=== PATIENT | female | born 1990 | race African-American/Black ===

== ENCOUNTER 2017-11-03 13:47 | Inpatient (IN) | payer BC ==
[2017-11-03 15:14] VITALS: BMI 27.8
--- NOTE | 2017-11-03 16:37 | HP ---
COWS - Scale Resting Pulse: 0= [place] 80 or Below Sweatin= No chills or Flushing Restless Observation: 1= Difficult to Sit Still Pupil Size: 1= Pupils >than Normal Bone or Joint Aches: 2= Severe Diffuse Aches Runny Nose/ Eye Tearin= None GI Upset > 30mins: 3= Vomiting/Diarrhea Tremor Observation: 2= Slight Tremor Visible Yawning Observation: 2= >3x During Session Anxiety or Irritability: 2=Irritable/Anxious Goose Flesh Skin: 3=Piloerection COWS Score: 16 Admission ROS S - HPI Chief Complaint: withdrawal symptoms Allergies/Adverse Reactions: Allergies Allergy/AdvReac Type Severity Reaction Status Date / Time ibuprofen [From Motrin] AdvReac Hives Verified 11/03/17 17:10 History of Present Illness: 27 yo female opiate dependence since 2011, with no history of prior treatment. Exam Limitations: No Limitations - Ebola screening Have you traveled outside of the country in the last 21 days: No (N) Have you had contact with anyone from an Ebola affected area: No Have you been sick,other than usual withdrawal symptoms: No Do you have a fever: No - Review of Systems Constitutional: Chills, Loss of Appetite, Unintentional Wgt. Loss EENT: reports: Other (intermittent tooth ache x 1 week, reports no link to dental care) Respiratory: reports: No Symptoms reported Cardiac: reports: No Symptoms Reported GI: reports: Diarrhea, Nausea, Poor Appetite, Abdominal cramping : reports: No Symptoms Reported Musculoskeletal: reports: Joint Stiffness (b/l knees & hands, and lower back) Integumentary: reports: Change in Hair/Nails (hair loss), Sweating Neuro: reports: Headache, Numbness, Tingling (hands) Endocrine: reports: Intolerance to Cold, Change in Weight Hematology: reports: Anemia Psychiatric: reports: Orientated x3, Depressed Patient History - Patient Medical History Hx Anemia: Yes Hx Asthma: Yes (no treatment ) Hx Chronic Obstructive Pulmonary Disease (COPD): No Hx Cancer: No Hx Cardiac Disorders: No Hx Congestive Heart Failure: No Hx Hypertension: No Hx Hypercholesterolemia: No Hx Pacemaker: No HX Cerebrovascular Accident: No Hx Seizures: No Hx Diabetes: No Hx Gastrointestinal Disorders: No Hx Liver Disease: No Hx Genitourinary Disorders: No Hx Sexually Transmitted Disorders: No Hx Renal Disease (ESRD): No Hx Thyroid Disease: No Hx Human Immunodeficiency Virus (HIV): No Hx Hepatitis C: No Hx Depression: Yes Hx Suicide Attempt: Yes (Tried to overdose 7 months ago.) Hx Bipolar Disorder: No Hx Schizophrenia: No - Patient Surgical History Past Surgical History: Yes Hx Neurologic Surgery: No Hx Cataract Extraction: No Hx Cardiac Surgery: No Hx Lung Surgery: No Hx Breast Surgery: No Hx Breast Biopsy: No Hx Abdominal Surgery: Yes (Gastric bypass in 2012) Hx Appendectomy: No Hx Cholecystectomy: No Hx Genitourinary Surgery: No Hx Section: No Hx Orthopedic Surgery: No Hx Hysterectomy: No - PPD History Previous Implant?: Yes Documented Results: Positive w/o proof Implanted On Prior [facility] Admission?: No - Reproductive History Patient is a Female of Child Bearing Age (11 -55 yrs old): Yes Last Menstrual Period: 01/07/17 (IUD) Patient : No - Smoking Cessation Smoking history: Current every day smoker Have you smoked in the past 12 months: Yes Aproximately how many cigarettes per day: 20 Hx Chewing Tobacco Use: No Initiated information on smoking cessation: Yes 'Breaking Loose' booklet given: 11/03/17 - Substance & Tx. History Hx Alcohol Use: No Hx Substance Use: Yes Substance Use Type: Opiates Hx Substance Use Treatment: No - Substances Abused percocet Route: Oral Frequency: Daily Amount used: 12-15 (5-10mg pills) Age of first use: 20 Date of Last Use: 11/02/17 Family Disease History - Family Disease History Family Disease History: Heart Disease: Mother (HTN ), Other: Brother (alieve and well ), Sister (alieve and well ) Admission Physical Exam S - Vital Signs Vital Signs: Vital Signs - 24 hr 11/03/17 15:10 Temperature 97.7 F Pulse Rate 62 Respiratory 20 Rate Blood Pressure 136/80 - Physical General Appearance: Yes: No Apparent Distress, Appropriately Dressed HEENTM: Yes: Hearing grossly Normal, Normal ENT Inspection, Normocephalic, Normal Voice, LYNSEY, Pharynx Normal Respiratory: Yes: Chest Non-Tender, Lungs Clear, Normal Breath Sounds, No Respiratory Distress, No Accessory Muscle Use Neck: Yes: Within Normal Limits, No masses,lesions,Nodules, Trachea in good position Breast: Yes: Breast Exam Deferred Cardiology: Yes: Regular Rhythm, Regular Rate, S1, S2 Abdominal: Yes: Normal Bowel Sounds, Non Tender, Flat, Soft Genitourinary: Yes: Within Normal Limits (reports no urinary symptoms) Back: Yes: Within Normal Limits, Normal Inspection Musculoskeletal: Yes: full range of Motion, Gait Steady, Pelvis Stable Extremities: Yes: Normal Capillary Refill, Normal Inspection, Normal Range of Motion, Non-Tender Neurological: Yes: Within Normal Limits, fruit grower II-XII NML intact, Fully Oriented, Alert, Depressed Affect Integumentary: Yes: Within Normal Limits, Normal Color, Dry, Warm, Other (dry mucous membranes, poor skin turgor) Lymphatic: Yes: Within Normal Limits - Addiitonal Findings: [employer] Reference #: [id number], last rx for Percocet 06/10/17 by Deepika Blandon - Diagnostic (1) Opioid dependence with withdrawal Current Visit: Yes Status: Acute (2) Dehydration Current Visit: Yes Status: Acute (3) Depressed mood Current Visit: Yes Status: Acute (4) Asthma Current Visit: Yes Status: Chronic Qualifiers: Asthma severity: mild Asthma persistence: unspecified Asthma complication type: uncomplicated Qualified Code(s): J45.909 - Unspecified asthma, uncomplicated (5) History of gastric bypass Current Visit: No Status: Chronic Cleared for Admission [facility] - Detox or Rehab [facility] Level of Care: Medically Managed Detox Regimen/Protocol: Methadone [facility] Breath Alcohol Content Breath Alcohol Content: 0 Urine Pregancy Test - Result Urine Test Results: Negative- NO Line Present Urine Drug Screen - Results Drug Screen Negative: No Urine Drug Screen Results: OPI-Opiates, OXY-Oxycodone
[2017-11-03] MEDS ORDERED: MAGNESIUM CITRATE 300 ML BOTTLE PO PRN (16:57)
[2017-11-03] MEDS ORDERED: MAGNESIUM HYDROX 2400MG/30ML ORAL SUSPENSION 30 ML CUP PO PRN (16:57)
[2017-11-03] MEDS ORDERED: MENTHOL/PHENOL 1 EACH UD MM PRN (16:57)
[2017-11-03] MEDS ORDERED: LOPERAMIDE HCL 2 MG CAPSULE PO PRN (16:57)
[2017-11-03] MEDS ORDERED: P-EPHED 60MG/TRIPROLIDI 2.5MG TABLET PO PRN (16:57)
[2017-11-03] MEDS ORDERED: guaiFENesin/D-METHORPHAN HB 10 ML UNIT-DOSE CUPS PO PRN (16:57)
[2017-11-03] MEDS ORDERED: METHADONE HCL 10 MG TABLET (FOR DETOX USE ONLY) PO ONE ×2 (18:00→23:00)
[2017-11-03] MEDS: diazePAM 5 MG TABLET PO PRN ×2 (18:26→22:27)
[2017-11-03] MEDS: NICOTINE 21 MG/24 HOURS TOPICAL PATCH TD SCH (18:29)
[2017-11-03] MEDS: NICOTINE POLACRILEX 2 MG GUM BC PRN (19:25)
[2017-11-03] MEDS: THIAMINE HCL 100 MG TABLET (FP) PO SCH (22:26)
[2017-11-03] MEDS: ACETAMINOPHEN 325 MG TABLET (FP) PO PRN (22:28)
[2017-11-03 23:10] LABS: URINE APPEARANCE CLEAR; URINE BILIRUBIN NEGATIVE (NEGATIVE); URINE BLOOD NEGATIVE (NEGATIVE); URINE COLOR YELLOW; URINE GLUCOSE (UA) NEGATIVE (NEGATIVE); URINE KETONE NEGATIVE (NEGATIVE); URINE LEUK ESTERASE NEGATIVE (NEGATIVE); URINE NITRITE NEGATIVE (NEGATIVE); URINE PROTEIN NEGATIVE (NEGATIVE)
[2017-11-04] MEDS ORDERED: ALBUTEROL SO4 18 GM HFA INHALER IH ONE (08:56)
--- NOTE | 2017-11-04 09:53 | EKG ---
Test Reason : Blood Pressure : / mmHG Vent. Rate : 080 BPM Atrial Rate : 080 BPM P-R Int : 158 ms QRS Dur : 086 ms QT Int : 400 ms P-R-T Axes : 072 071 049 degrees QTc Int : 461 ms NORMAL SINUS RHYTHM WITH SINUS ARRHYTHMIA NORMAL ECG NO PREVIOUS ECGS AVAILABLE Confirmed by REY ARCEO MD ([id number]) on 11/04/2017 9:53:22 AM Referred By: Confirmed By:REY ARCEO MD
[2017-11-04] MEDS ORDERED: METHADONE HCL 10 MG TABLET (FOR DETOX USE ONLY) PO ONE (10:00)
--- NOTE | 2017-11-04 10:36 | PN ---
BHS COWS - Scale Resting Pulse: 0= [place] 80 or Below Sweatin=Flushed/Facial Moisture Restless Observation: 1= Difficult to Sit Still Pupil Size: 0= Normal to Room Light Bone or Joint Aches: 1= Mild Discomfort Runny Nose/ Eye Tearin= Runny Nose/Eyes GI Upset > 30mins: 1= Stomach Cramp Tremor Observation of Outstretched Hands: 1= Tremor [place], Not Seen Yawning Observation: 1= 1-2x During Session Anxiety or Irritability: 2=Irritable/Anxious Goose Flesh Skin: 0=Smooth Skin COWS Score: 11 S Progress Note (SOAP) Subjective: Anxiety,tremors,sweating,interrupted sleep,restless Objective: 11/04/17 10:35 Vital Signs - 8 hr 11/04/17 11/04/17 11/04/17 03:30 07:41 09:45 Temperature 97.7 F 98.2 F Pulse Rate 72 74 Respiratory 18 18 18 Rate Blood Pressure 130/71 132/91 Laboratory Tests 11/03/17 18:56 Urine Color Yellow Urine Appearance Clear Urine pH 7.0 Ur Specific [place] 1.015 Urine Protein Negative Urine Glucose (UA) Negative Urine Ketones Negative Urine Blood Negative Urine Nitrite Negative Urine Bilirubin Negative Urine Urobilinogen 2.0 H Ur Leukocyte Esterase Negative Assessment: 11/04/17 10:35 Withdrawal sx Plan: Continue detox Albuterol inhaler
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
[2017-11-04] MEDS: PRENATAL VITAMINS W/ FOLIC ACID TABLET (FP) PO SCH (10:54)
[2017-11-04] MEDS: diazePAM 5 MG TABLET PO PRN ×4 (10:54→23:52)
[2017-11-04] MEDS: NICOTINE 21 MG/24 HOURS TOPICAL PATCH TD SCH (10:55)
[2017-11-04] MEDS: NICOTINE POLACRILEX 2 MG GUM BC PRN ×3 (10:57→19:36)
[2017-11-04 12:06] LABS: HEMATOCRIT 36.8 % (32.4-45.2); HEMOGLOBIN 11.3 GM/dL (10.7-15.3); MCH 27.5 pg (25.7-33.7); MCHC 30.7 g/dl (32.0-36.0); MEAN CELL VOLUME 89.7 fl (80-96); MEAN PLT VOLUME 8.9 fl (7.5-11.1); PLATELET COUNT 245 K/MM3 (134-434); RDW 16.1 % (11.6-15.6)
[2017-11-04 12:13] LABS: ALBUMIN 3.6 g/dl (3.4-5.0); ALK PHOS 64 U/L (45-117); ANION GAP 9 (8-16); BILIRUBIN,TOTAL 0.9 mg/dL (0.2-1.0); BLOOD UREA NITROGEN 5 mg/dL (7-18); CALCIUM 8.8 mg/dL (8.5-10.1); CHLORIDE 105 mmol/L (98-107); CO2 28 mmol/L (21-32); CREATININE 0.7 mg/dL (0.55-1.02); GLUCOSE,RANDOM 78 mg/dL (74-106); POTASSIUM 3.8 mmol/L (3.5-5.1); SGOT/AST 8 U/L (15-37); SGPT/ALT 12 U/L (12-78); SODIUM 142 mmol/L (136-145); TOT PROT 7.2 g/dl (6.4-8.2)
[2017-11-04] MEDS ORDERED: COLLOIDAL OATMEAL 1 BAR EACH TP PRN (14:13)
[2017-11-04] MEDS: ACETAMINOPHEN 325 MG TABLET (FP) PO PRN (15:12)
[2017-11-04] MEDS: ALBUTEROL SO4 18 GM HFA INHALER IH PRN ×2 (15:14→22:41)
[2017-11-04] MEDS: THIAMINE HCL 100 MG TABLET (FP) PO SCH (22:41)
[2017-11-04] MEDS: ZOLPIDEM TARTRATE 5 MG TABLET PO PRN (22:41)
[2017-11-05] MEDS: VITAMINS A AND D TOPICAL OINTMENT 60 GM TUBE TP SCH ×4 (01:00→17:06)
[2017-11-05] MEDS: hydrOXYzine PAMOATE 50 MG CAPSULE (FP) PO PRN ×3 (01:26→22:15)
--- NOTE | 2017-11-05 09:24 | PN ---
BHS COWS - Scale Resting Pulse: 0= [place] 80 or Below Sweatin=Flushed/Facial Moisture Restless Observation: 1= Difficult to Sit Still Pupil Size: 0= Normal to Room Light Bone or Joint Aches: 1= Mild Discomfort Runny Nose/ Eye Tearin= Runny Nose/Eyes GI Upset > 30mins: 2= Nausea/Diarrhea Tremor Observation of Outstretched Hands: 2= Slight Tremor Visible Yawning Observation: 1= 1-2x During Session Anxiety or Irritability: 2=Irritable/Anxious Goose Flesh Skin: 0=Smooth Skin COWS Score: 13 BHS Progress Note (SOAP) Subjective: Sweating,body aches,interrupted sleep,restless Objective: 11/05/17 09:23 Vital Signs - 8 hr 11/05/17 11/05/17 03:30 06:00 Temperature 97.5 F L Pulse Rate 68 Respiratory 18 18 Rate Blood Pressure 106/54 Laboratory Tests 11/03/17 11/03/17 11/04/17 05:45 18:56 05:45 WBC 4.0 RBC 4.10 Hgb 11.3 Hct 36.8 MCV 89.7 MCH 27.5 MCHC 30.7 L RDW 16.1 H Plt Count 245 MPV 8.9 Sodium Potassium Chloride Carbon Dioxide Anion Gap BUN Creatinine Creat Clearance w eGFR Random Glucose Calcium Total Bilirubin AST ALT Alkaline Phosphatase Total Protein Albumin Urine Color Yellow Urine Appearance Clear Urine pH 7.0 Ur Specific [place] 1.015 Urine Protein Negative Urine Glucose (UA) Negative Urine Ketones Negative Urine Blood Negative Urine Nitrite Negative Urine Bilirubin Negative Urine Urobilinogen 2.0 H Ur Leukocyte Esterase Negative RPR Titer Hepatitis C Antibody 0.1 11/04/17 11/04/17 05:45 05:45 WBC RBC Hgb Hct MCV MCH MCHC RDW Plt Count MPV Sodium 142 Potassium 3.8 Chloride 105 Carbon Dioxide 28 Anion Gap 9 BUN 5 L Creatinine 0.7 Creat Clearance w eGFR > 60 Random Glucose 78 Calcium 8.8 Total Bilirubin 0.9 AST 8 L ALT 12 Alkaline Phosphatase 64 Total Protein 7.2 Albumin 3.6 Urine Color Urine Appearance Urine pH Ur Specific [place] Urine Protein Urine Glucose (UA) Urine Ketones Urine Blood Urine Nitrite Urine Bilirubin Urine Urobilinogen Ur Leukocyte Esterase RPR Titer Nonreactive Hepatitis C Antibody labs noted Assessment: 11/05/17 09:24 Withdrawal sx. Plan: Continue detox
[2017-11-05] MEDS ORDERED: METHADONE HCL 5 MG TABLET (FOR DETOX USE ONLY) PO ONE (10:00)
[2017-11-05] MEDS: diazePAM 5 MG TABLET PO PRN ×3 (10:30→22:15)
[2017-11-05] MEDS: ALBUTEROL SO4 18 GM HFA INHALER IH PRN ×3 (10:30→17:08)
[2017-11-05] MEDS: NICOTINE 21 MG/24 HOURS TOPICAL PATCH TD SCH (10:30)
[2017-11-05] MEDS: PRENATAL VITAMINS W/ FOLIC ACID TABLET (FP) PO SCH (10:30)
[2017-11-05] MEDS: NICOTINE POLACRILEX 2 MG GUM BC PRN ×2 (10:34→22:54)
[2017-11-05] MEDS: MAG HYDROX/AL HYDROX/SIMETH 30 ML UNIT-DOSE CUP PO PRN (18:16)
[2017-11-05] MEDS ORDERED: ONDANSETRON *ODT* 4 MG TABLET SL ONE (18:31)
[2017-11-05] MEDS: ZOLPIDEM TARTRATE 5 MG TABLET PO PRN (22:15)
[2017-11-05] MEDS: THIAMINE HCL 100 MG TABLET (FP) PO SCH (22:15)
[2017-11-06] MEDS: VITAMINS A AND D TOPICAL OINTMENT 60 GM TUBE TP SCH ×5 (00:32→23:28)
[2017-11-06] MEDS ORDERED: METHADONE HCL 5 MG TABLET (FOR DETOX USE ONLY) PO ONE (10:00)
[2017-11-06] MEDS: PRENATAL VITAMINS W/ FOLIC ACID TABLET (FP) PO SCH (10:42)
[2017-11-06] MEDS: diazePAM 5 MG TABLET PO PRN ×2 (10:43→14:54)
[2017-11-06] MEDS: NICOTINE 21 MG/24 HOURS TOPICAL PATCH TD SCH (10:44)
[2017-11-06] MEDS: NICOTINE POLACRILEX 2 MG GUM BC PRN ×4 (10:46→22:45)
--- NOTE | 2017-11-06 11:05 | PN ---
BHS Progress Note (SOAP) Subjective: joint aches restlessness anxiety Objective: 11/06/17 11:04 Vital Signs Temperature 98.2 F 11/06/17 10:00 Pulse Rate 83 11/06/17 10:00 Respiratory Rate 18 11/06/17 10:00 Blood Pressure 143/71 11/06/17 10:00 O2 Sat by Pulse Oximetry (%) Laboratory Last Values WBC 4.0 K/mm3 (4.0-10.0) 11/04/17 05:45 RBC 4.10 M/mm3 (3.60-5.2) 11/04/17 05:45 Hgb 11.3 GM/dL (10.7-15.3) 11/04/17 05:45 Hct 36.8 % (32.4-45.2) 11/04/17 05:45 MCV 89.7 fl (80-96) 11/04/17 05:45 MCH 27.5 pg (25.7-33.7) 11/04/17 05:45 MCHC 30.7 g/dl (32.0-36.0) L 11/04/17 05:45 RDW 16.1 % (11.6-15.6) H 11/04/17 05:45 Plt Count 245 K/MM3 (134-434) 11/04/17 05:45 MPV 8.9 fl (7.5-11.1) 11/04/17 05:45 Sodium 142 mmol/L (136-145) 11/04/17 05:45 Potassium 3.8 mmol/L (3.5-5.1) 11/04/17 05:45 Chloride 105 mmol/L (98-107) 11/04/17 05:45 Carbon Dioxide 28 mmol/L (21-32) 11/04/17 05:45 Anion Gap 9 (8-16) 11/04/17 05:45 BUN 5 mg/dL (7-18) L 11/04/17 05:45 Creatinine 0.7 mg/dL (0.55-1.02) 11/04/17 05:45 Creat Clearance w eGFR > 60 (>60) 11/04/17 05:45 Random Glucose 78 mg/dL (74-106) 11/04/17 05:45 Calcium 8.8 mg/dL (8.5-10.1) 11/04/17 05:45 Total Bilirubin 0.9 mg/dL (0.2-1.0) 11/04/17 05:45 AST 8 U/L (15-37) L 11/04/17 05:45 ALT 12 U/L (12-78) 11/04/17 05:45 Alkaline Phosphatase 64 U/L (45-117) 11/04/17 05:45 Total Protein 7.2 g/dl (6.4-8.2) 11/04/17 05:45 Albumin 3.6 g/dl (3.4-5.0) 11/04/17 05:45 Urine Color Yellow 11/03/17 18:56 Urine Appearance Clear 11/03/17 18:56 Urine pH 7.0 (5.0-8.0) 11/03/17 18:56 Ur Specific [place] 1.015 (1.001-1.035) 11/03/17 18:56 Urine Protein Negative (NEGATIVE) 11/03/17 18:56 Urine Glucose (UA) Negative (NEGATIVE) 11/03/17 18:56 Urine Ketones Negative (NEGATIVE) 11/03/17 18:56 Urine Blood Negative (NEGATIVE) 11/03/17 18:56 Urine Nitrite Negative (NEGATIVE) 11/03/17 18:56 Urine Bilirubin Negative (NEGATIVE) 11/03/17 18:56 Urine Urobilinogen 2.0 mg/dL (0.2-1.0) H 11/03/17 18:56 Ur Leukocyte Esterase Negative (NEGATIVE) 11/03/17 18:56 RPR Titer Nonreactive (NONREACTIVE) 11/04/17 05:45 Hepatitis C Antibody 0.1 s/co ratio (0.0-0.9) 11/03/17 05:45 lab noted Assessment: 11/06/17 11:04 withdrawal sx Plan: continue detox
[2017-11-06] MEDS ORDERED: ZOLPIDEM TARTRATE 5 MG TABLET PO PRN (12:07)
[2017-11-06] MEDS: hydrOXYzine PAMOATE 50 MG CAPSULE (FP) PO PRN ×3 (12:29→22:35)
[2017-11-06] MEDS: ACETAMINOPHEN 325 MG TABLET (FP) PO PRN ×2 (14:55→22:36)
[2017-11-06] MEDS: MAG HYDROX/AL HYDROX/SIMETH 30 ML UNIT-DOSE CUP PO PRN (16:55)
[2017-11-06] MEDS: THIAMINE HCL 100 MG TABLET (FP) PO SCH (22:36)
[2017-11-06] MEDS: ALBUTEROL SO4 18 GM HFA INHALER IH PRN (22:38)
[2017-11-07] MEDS: hydrOXYzine PAMOATE 50 MG CAPSULE (FP) PO PRN (03:06)
[2017-11-07 06:21] VITALS: TEMP 97.9
[2017-11-07] MEDS: VITAMINS A AND D TOPICAL OINTMENT 60 GM TUBE TP SCH (07:29)
[2017-11-07] MEDS: ALBUTEROL SO4 18 GM HFA INHALER IH PRN (08:41)
[2017-11-07] MEDS: NICOTINE POLACRILEX 2 MG GUM BC PRN (08:45)
--- NOTE | 2017-11-07 09:13 | DS ---
[facility] Detox Discharge Summary Admission Date: 11/03/17 Discharge Date: 11/07/17 - History Present History: Opioid Dependence - Physical Exam Results Vital Signs: Vital Signs Temperature 97.9 F 11/07/17 06:20 Pulse Rate 78 11/07/17 06:20 Respiratory Rate 18 11/07/17 06:20 Blood Pressure 120/70 11/07/17 06:20 O2 Sat by Pulse Oximetry (%) Pertinent Admission Physical Exam Findings: withdrawal sx Vital Signs Temperature 97.9 F 11/07/17 06:20 Pulse Rate 78 11/07/17 06:20 Respiratory Rate 18 11/07/17 06:20 Blood Pressure 120/70 11/07/17 06:20 O2 Sat by Pulse Oximetry (%) Laboratory Last Values WBC 4.0 K/mm3 (4.0-10.0) 11/04/17 05:45 RBC 4.10 M/mm3 (3.60-5.2) 11/04/17 05:45 Hgb 11.3 GM/dL (10.7-15.3) 11/04/17 05:45 Hct 36.8 % (32.4-45.2) 11/04/17 05:45 MCV 89.7 fl (80-96) 11/04/17 05:45 MCH 27.5 pg (25.7-33.7) 11/04/17 05:45 MCHC 30.7 g/dl (32.0-36.0) L 11/04/17 05:45 RDW 16.1 % (11.6-15.6) H 11/04/17 05:45 Plt Count 245 K/MM3 (134-434) 11/04/17 05:45 MPV 8.9 fl (7.5-11.1) 11/04/17 05:45 Sodium 142 mmol/L (136-145) 11/04/17 05:45 Potassium 3.8 mmol/L (3.5-5.1) 11/04/17 05:45 Chloride 105 mmol/L (98-107) 11/04/17 05:45 Carbon Dioxide 28 mmol/L (21-32) 11/04/17 05:45 Anion Gap 9 (8-16) 11/04/17 05:45 BUN 5 mg/dL (7-18) L 11/04/17 05:45 Creatinine 0.7 mg/dL (0.55-1.02) 11/04/17 05:45 Creat Clearance w eGFR > 60 (>60) 11/04/17 05:45 Random Glucose 78 mg/dL (74-106) 11/04/17 05:45 Calcium 8.8 mg/dL (8.5-10.1) 11/04/17 05:45 Total Bilirubin 0.9 mg/dL (0.2-1.0) 11/04/17 05:45 AST 8 U/L (15-37) L 11/04/17 05:45 ALT 12 U/L (12-78) 11/04/17 05:45 Alkaline Phosphatase 64 U/L (45-117) 11/04/17 05:45 Total Protein 7.2 g/dl (6.4-8.2) 11/04/17 05:45 Albumin 3.6 g/dl (3.4-5.0) 11/04/17 05:45 Urine Color Yellow 11/03/17 18:56 Urine Appearance Clear 11/03/17 18:56 Urine pH 7.0 (5.0-8.0) 11/03/17 18:56 Ur Specific [place] 1.015 (1.001-1.035) 11/03/17 18:56 Urine Protein Negative (NEGATIVE) 11/03/17 18:56 Urine Glucose (UA) Negative (NEGATIVE) 11/03/17 18:56 Urine Ketones Negative (NEGATIVE) 11/03/17 18:56 Urine Blood Negative (NEGATIVE) 11/03/17 18:56 Urine Nitrite Negative (NEGATIVE) 11/03/17 18:56 Urine Bilirubin Negative (NEGATIVE) 11/03/17 18:56 Urine Urobilinogen 2.0 mg/dL (0.2-1.0) H 11/03/17 18:56 Ur Leukocyte Esterase Negative (NEGATIVE) 11/03/17 18:56 RPR Titer Nonreactive (NONREACTIVE) 11/04/17 05:45 Hepatitis C Antibody 0.1 s/co ratio (0.0-0.9) 11/03/17 05:45 lab noted - Treatment Hospital Course: Detox Protocol Followed, Detoxed Safely, Responded well, Discharged Condition Good, Rehab Referral Accepted - Medication Discharge Medications: Ambulatory Orders NK [No Known Home Medication] 11/03/17 - Diagnosis (1) Opioid dependence with withdrawal Current Visit: Yes Status: Acute (2) Depressed mood Current Visit: Yes Status: Suspected - AMA Did Patient Leave Against Medical Advice: No
[2017-11-07] MEDS: PRENATAL VITAMINS W/ FOLIC ACID TABLET (FP) PO SCH (09:27)
[2017-11-07] MEDS: ACETAMINOPHEN 325 MG TABLET (FP) PO PRN (09:27)
[2017-11-07] MEDS ORDERED: METHADONE HCL 10 MG TABLET (FOR DETOX USE ONLY) PO ONE (10:00)
[2017-11-07] MEDS ORDERED: METHADONE HCL 5 MG TABLET (FOR DETOX USE ONLY) PO ONE (10:00)
[2017-11-07 11:04] VITALS: BP 125/77; PULSE 76
[2017-11-08] MEDS ORDERED: METHADONE HCL 5 MG TABLET (FOR DETOX USE ONLY) PO ONE (06:00)
== END 2017-11-07 09:49 | disposition home or self-care (01) | DRG 773 ==
LOC: YASAS 13:47 → Y6N 16:40
PROVIDERS: ADMIT Internal Medicine; ATTEND Internal Medicine
PROC: HZ2ZZZZ Detoxification Services for Substance Abuse Treatment (ICD-10-PCS; principal; 2017-11-03)
DX: F11.23 Opioid dependence with withdrawal (principal); F17.210 Nicotine dependence, cigarettes, uncomplicated; F32.9 Major depressive disorder, single episode, unspecified; F19.24 Other psychoactive substance dependence with psychoactive substance-induced mood disorder; G47.00 Insomnia, unspecified; E86.0 Dehydration; J45.909 Unspecified asthma, uncomplicated; D64.9 Anemia, unspecified; Z98.84 Bariatric surgery status; Z88.6 Allergy status to analgesic agent; Z91.5 Personal history of self-harm
CPT/HCPCS: 36415; 71046-TC; 80053; 81003; 85027; 86593; 86803; 93005; 93010

== ENCOUNTER 2018-01-31 16:58 | Inpatient (IN) | payer BC ==
[2018-01-31 20:11] VITALS: BMI 28.1
--- NOTE | 2018-01-31 20:40 | HP ---
COWS - Scale Resting Pulse: 1= [place] 81-100 Sweatin=Flushed/Facial Moisture Restless Observation: 0= Sits Still Pupil Size: 0= Normal to Room Light Bone or Joint Aches: 4=Acute Joint/Muscle Pain Runny Nose/ Eye Tearin= Runny Nose/Eyes GI Upset > 30mins: 2= Nausea/Diarrhea (diarrhea x 5) Tremor Observation: 2= Slight Tremor Visible Yawning Observation: 0= None Anxiety or Irritability: 2=Irritable/Anxious Goose Flesh Skin: 0=Smooth Skin COWS Score: 15 Admission ROS S - [facility] Chief Complaint: Opioid withdrawal symptoms Allergies/Adverse Reactions: Allergies Allergy/AdvReac Type Severity Reaction Status Date / Time ibuprofen [From Motrin] Allergy Hives & Verified 01/31/18 19:38 abdominal pain iodine Allergy Hives Verified 01/31/18 19:38 Exam Limitations: No Limitations - Ebola screening Have you traveled outside of the country in the last 21 days: No (N) Have you had contact with anyone from an Ebola affected area: No Have you been sick,other than usual withdrawal symptoms: No Do you have a fever: No - Review of Systems Constitutional: Chills, Loss of Appetite, Malaise, Night Sweats, Changes in sleep EENT: reports: Nose Congestion Respiratory: reports: Cough (yellowish phlegm) Cardiac: reports: No Symptoms Reported GI: reports: Diarrhea, Nausea, Poor Appetite, Poor Fluid Intake, Abdominal cramping : reports: No Symptoms Reported Musculoskeletal: reports: Back Pain Integumentary: reports: Dryness, Flushing Neuro: reports: Headache, Tingling, Tremors Endocrine: reports: No Symptoms Reported Hematology: reports: No Symptoms Reported Psychiatric: reports: Orientated x3, Anxious, Depressed Other Systems: Reviewed and Negative Patient History - Patient Medical History Hx Anemia: Yes (Not on medication) Hx Asthma: Yes (Albuterol) Hx Chronic Obstructive Pulmonary Disease (COPD): No Hx Cancer: No Hx Cardiac Disorders: No Hx Congestive Heart Failure: No Hx Hypertension: No Hx Hypercholesterolemia: No Hx Pacemaker: No HX Cerebrovascular Accident: No Hx Seizures: No Hx Diabetes: No Hx Gastrointestinal Disorders: No Hx Liver Disease: No Hx Genitourinary Disorders: No Hx Sexually Transmitted Disorders: Yes (Herpes (Treated)) Hx Renal Disease (ESRD): No Hx Thyroid Disease: No Hx Human Immunodeficiency Virus (HIV): No (Negative 2017) Hx Hepatitis C: No Hx Depression: Yes (Not on medication) Hx Suicide Attempt: No (Attempt 2016 with pills. Denies suicidal ideation at this time) Hx Bipolar Disorder: No Hx Schizophrenia: No - Patient Surgical History Past Surgical History: Yes Hx Neurologic Surgery: No Hx Cataract Extraction: No Hx Cardiac Surgery: No Hx Lung Surgery: No Hx Breast Surgery: No Hx Breast Biopsy: No Hx Abdominal Surgery: Yes (Gastric bypass in 2012) Hx Appendectomy: No Hx Cholecystectomy: No Hx Genitourinary Surgery: No Hx Section: No Hx Orthopedic Surgery: No Hx Hysterectomy: No Anesthesia Reaction: No - PPD History Previous Implant?: Yes Documented Results: Positive w/proof Results: cxr{-} 11/04/17 PPD to be Administered?: No - Reproductive History Patient is a Female of Child Bearing Age (11 -55 yrs old): Yes Last Menstrual Period: 01/07/17 LMP comment: Has IUD inserted June 2018 Patient : No - Smoking Cessation Smoking history: Current every day smoker Have you smoked in the past 12 months: Yes Aproximately how many cigarettes per day: 10 Hx Chewing Tobacco Use: No Initiated information on smoking cessation: Yes 'Breaking Loose' booklet given: 01/31/18 - Substance & Tx. History Hx Alcohol Use: No Hx Substance Use: Yes Substance Use Type: Opiates Hx Substance Use Treatment: Yes ([facility] 12/20/2017) - Substances Abused Percocet Route: Oral Frequency: Daily Amount used: 50mg Age of first use: 20 Date of Last Use: 01/31/18 Family Disease History - Family Disease History Family Disease History: Diabetes: Grandparent (Grandmother - ), Heart Disease: Father (HTN), Mother (HTN ), [place]: Grandparent Admission Physical Exam BHS - Vital Signs Vital Signs: Vital Signs - 24 hr 01/31/18 20:07 Temperature 97.5 F L Pulse Rate 85 Respiratory 18 Rate Blood Pressure 124/73 - Physical General Appearance: Yes: Moderate Distress, Tremorous, Irritable, Anxious HEENTM: Yes: Normal Voice, LYNSE[place], Nasal Congestion Respiratory: Yes: Lungs Clear, Normal Breath Sounds, No Respiratory Distress Neck: Yes: Supple Breast: Yes: Breast Exam Deferred Cardiology: Yes: Regular Rhythm, Regular Rate, S1, S2 Abdominal: Yes: Normal Bowel Sounds, Soft Genitourinary: Yes: Within Normal Limits Back: Yes: Normal Inspection Musculoskeletal: Yes: Back pain Extremities: Yes: Tremors Neurological: Yes: Alert, Normal Mood/Affect Integumentary: Yes: Dry Lymphatic: Yes: Within Normal Limits - Diagnostic (1) Depressed Current Visit: Yes Status: Chronic Qualifiers: Depression Type: unspecified Qualified Code(s): F32.9 - Major depressive disorder, single episode, unspecified (2) Dehydration Current Visit: Yes Status: Chronic (3) Opioid dependence with withdrawal Current Visit: Yes Status: Chronic (4) Asthma Current Visit: Yes Status: Chronic Qualifiers: Asthma severity: mild Asthma persistence: intermittent (5) Nicotine dependence Current Visit: Yes Status: Chronic Qualifiers: Nicotine product type: cigarettes BHS Breath Alcohol Content Breath Alcohol Content: 0 Urine Drug Screen - Results Drug Screen Negative: Yes Urine Drug Screen Results: MTD-Methadone, OXY-Oxycodone
[2018-01-31] MEDS ORDERED: METHADONE HCL 10 MG TABLET (FOR DETOX USE ONLY) PO ONE ×2 (20:59→23:00)
[2018-01-31] MEDS ORDERED: IBUPROFEN 400 MG TABLET (FP) PO PRN (20:59)
[2018-01-31] MEDS ORDERED: MENTHOL/PHENOL 1 EACH UD MM PRN (20:59)
[2018-01-31] MEDS ORDERED: MAG HYDROX/AL HYDROX/SIMETH 30 ML UNIT-DOSE CUP PO PRN (20:59)
[2018-01-31] MEDS ORDERED: MAGNESIUM CITRATE 300 ML BOTTLE PO PRN (20:59)
[2018-01-31] MEDS ORDERED: LOPERAMIDE HCL 2 MG CAPSULE PO PRN (20:59)
[2018-01-31] MEDS ORDERED: MAGNESIUM HYDROX 2400MG/30ML ORAL SUSPENSION 30 ML CUP PO PRN (20:59)
[2018-01-31] MEDS: THIAMINE HCL 100 MG TABLET (FP) PO SCH (22:18)
[2018-01-31] MEDS: diazePAM 5 MG TABLET PO PRN (22:18)
[2018-01-31] MEDS: NICOTINE POLACRILEX 2 MG GUM BC PRN (22:20)
[2018-01-31] MEDS: ALBUTEROL SO4 18 GM HFA INHALER IH PRN (23:18)
[2018-01-31] MEDS: MELATONIN 5 MG TABLETS PO PRN (23:57)
[2018-02-01] MEDS: diazePAM 5 MG TABLET PO PRN ×5 (02:17→22:20)
[2018-02-01] MEDS: ALBUTEROL SO4 18 GM HFA INHALER IH PRN ×5 (02:18→23:58)
[2018-02-01] MEDS: guaiFENesin/D-METHORPHAN HB 10 ML UNIT-DOSE CUPS PO PRN (05:11)
[2018-02-01] MEDS: ACETAMINOPHEN 325 MG TABLET (FP) PO PRN ×2 (06:14→14:34)
[2018-02-01] MEDS: NICOTINE POLACRILEX 2 MG GUM BC PRN ×3 (06:21→22:29)
[2018-02-01 06:38] LABS: URINE APPEARANCE TURBID; URINE BILIRUBIN NEGATIVE (<2.0 mg/dL); URINE BLOOD NEGATIVE (NEGATIVE); URINE COLOR AMBER; URINE GLUCOSE (UA) NEGATIVE (NEGATIVE); URINE KETONE NEGATIVE (NEGATIVE); URINE LEUK ESTERASE NEGATIVE (NEGATIVE); URINE NITRITE NEGATIVE (NEGATIVE)
[2018-02-01 06:55] LABS: URINE PROTEIN 1+ (NEGATIVE)
[2018-02-01 07:04] LABS: URINE BACTERIA MANY /hpf (NONE SEEN); URINE MUCUS MANY
--- NOTE | 2018-02-01 07:28 | CONSULT ---
[facility] Psychiatric Consult - Data Date of interview: 02/01/18 Admission source: [facility] Identifying data: This is 27 years old female, single, living with family, unemployed, with no psychiatric hospitalization history, history of abusing Opioids and Nicotine, is here for detoxifications after abusing above drugs, reports withdrawal symptoms. Substance Abuse History: Smoking history: Current every day smoker. Have you smoked in the past 12 months: Yes. Aproximately how many cigarettes per day: 10. Hx Chewing Tobacco Use: No. Initiated information on smoking cessation: Yes. 'Breaking Loose' booklet given: 01/31/18. - Substance & Tx. History. Hx Alcohol Use: No. Hx Substance Use: Yes. Substance Use Type: Opiates. Hx Substance Use Treatment: Yes ([facility] 12/20/2017). - Substances Abused. Percocet. Route: Oral. Frequency: Daily. Amount used: 50mg. Age of first use : 20. Date of Last Use: 01/31/18 Medical History: Asthma, History of MMTP Psychiatric History: Patient reports history of depression, reports n o history psychiatric admissions, reports taking Seroquel 100mg po qhs for insonmnia prior to admission. As per chart there is a history of Suicidal attempt, patient did not report this information. Physical/Sexual Abuse/Trauma History: Denies Additional Comment: Seroquel 100mg po qhs Mental Status Exam - Mental Status Exam Alert and Oriented to: Person Cognitive Function: Fair Patient Appearance: Unkempt Mood: Sad Affect: Flat Patient Behavior: Sedated Speech Pattern: Delayed Voice Loudness: Mildly Soft/Quiet Thought Process: Circumstantial Thought Disorder: Being Controlled Hallucinations: Denies Suicidal Ideation: Denies Homicidal Ideation: Denies Insight/Judgement: Fair Sleep: Difficulty falling asleep Appetite: Fair Muscle strength/Tone: Mild Hypotonicity Gait/Station: Shuffling Additional Comments: Seroiquel 100mg po qhs Psychiatric Findings - Problem List ([place] 1, 2,3) (1) Nicotine dependence Current Visit: Yes Status: Chronic Qualifiers: Nicotine product type: cigarettes (2) Opioid dependence with withdrawal Current Visit: Yes Status: Chronic (3) Drug-induced mood disorder Current Visit: No Status: Acute (4) Opioid dependence Current Visit: No Status: Acute Qualifiers: Substance use status: uncomplicated Qualified Code(s): F11.20 - Opioid dependence, uncomplicated (5) Depressed mood Current Visit: No Status: Suspected (6) Substance induced mood disorder Current Visit: No Status: Suspected - Initial Treatment Plan Initial Treatment Plan: Seroiquel 100mg po qhs
[2018-02-01] MEDS: P-EPHED 60MG/TRIPROLIDI 2.5MG TABLET PO PRN (08:30)
[2018-02-01] MEDS ORDERED: COLLOIDAL OATMEAL 1 BAR EACH TP PRN (08:54)
[2018-02-01] MEDS ORDERED: METHADONE HCL 10 MG TABLET (FOR DETOX USE ONLY) PO ONE (10:00)
[2018-02-01 10:04] LABS: HEMATOCRIT 34.4 % (32.4-45.2); HEMOGLOBIN 11.3 GM/dL (10.7-15.3); MCH 28.5 pg (25.7-33.7); MCHC 32.7 g/dl (32.0-36.0); MEAN CELL VOLUME 87.2 fl (80-96); MEAN PLT VOLUME 8.4 fl (7.5-11.1); PLATELET COUNT 223 K/MM3 (134-434); RBC 3.94 M/mm3 (3.60-5.2); RDW 14.4 % (11.6-15.6); WHITE BLOOD COUNT 5.2 K/mm3 (4.0-10.0)
[2018-02-01 10:31] LABS: CHLORIDE 107 mmol/L (98-107); POTASSIUM 3.3 mmol/L (3.5-5.1); SODIUM 139 mmol/L (136-145)
[2018-02-01] MEDS: PRENATAL VITAMINS W/ FOLIC ACID TABLET (FP) PO SCH (10:39)
[2018-02-01 10:40] LABS: ALBUMIN 3.7 g/dl (3.4-5.0); ALK PHOS 64 U/L (45-117); ANION GAP 5 (8-16); BLOOD UREA NITROGEN 8 mg/dL (7-18); CALCIUM 8.5 mg/dL (8.5-10.1); CO2 27 mmol/L (21-32); CREATININE 0.6 mg/dL (0.55-1.02); GLUCOSE,RANDOM 65 mg/dL (74-106); SGOT/AST 12 U/L (15-37); SGPT/ALT 10 U/L (12-78); TOT PROT 7.2 g/dl (6.4-8.2)
[2018-02-01] MEDS: NICOTINE 14 MG/24 HOURS TOPICAL PATCH TD SCH (10:40)
--- NOTE | 2018-02-01 11:31 | EKG ---
Test Reason : Blood Pressure : / mmHG Vent. Rate : 072 BPM Atrial Rate : 072 BPM P-R Int : 146 ms QRS Dur : 086 ms QT Int : 406 ms P-R-T Axes : 069 077 052 degrees QTc Int : 444 ms NORMAL SINUS RHYTHM POSSIBLE LEFT ATRIAL ENLARGEMENT BORDERLINE ECG WHEN COMPARED WITH ECG OF 20-DEC-2017 16:31, NO SIGNIFICANT CHANGE WAS FOUND Confirmed by PARKER MARTÍNEZ, DAVID ([id number]) on 02/01/2018 11:30:51 AM Referred By: Jeff FAJARDO Confirmed By:DAVID CANALES MD
--- NOTE | 2018-02-01 11:44 | PN ---
S CIWA - CIWA Score Nausea/Vomitin Muscle Tremors: 3 Anxiety: 3 Agitation: 3 Paroxysmal Sweats: 1-Minimal Palms Moist Orientation: 0-Oriented Tacttile Disturbances: 1-Very Mild Itch/Numbness Auditory Disturbances: 1-Very Mild Visual Disturbances: 0-None Headache: 2-Mild CIWA-Ar Total Score: 17 S Progress Note (SOAP) Subjective: ALERT,IRRITABLE,ANXIOUS,INTERRUPTED SLEEP,TREMOR,PAIN IN THE BODY AND BACK Objective: 02/01/18 11:43 Vital Signs Temperature 98.1 F 02/01/18 10:17 Pulse Rate 85 02/01/18 10:17 Respiratory Rate 18 02/01/18 10:17 Blood Pressure 121/69 02/01/18 10:17 O2 Sat by Pulse Oximetry (%) 02/01/18 11:45 EKG NSR PROLONG QT 406/444 NO CHEST PAIN,NO SOB,NO DIZZINESS Laboratory Last Values WBC 5.2 K/mm3 (4.0-10.0) 02/01/18 07:30 RBC 3.94 M/mm3 (3.60-5.2) 02/01/18 07:30 Hgb 11.3 GM/dL (10.7-15.3) 02/01/18 07:30 Hct 34.4 % (32.4-45.2) 02/01/18 07:30 MCV 87.2 fl (80-96) 02/01/18 07:30 MCH 28.5 pg (25.7-33.7) 02/01/18 07:30 MCHC 32.7 g/dl (32.0-36.0) 02/01/18 07:30 RDW 14.4 % (11.6-15.6) 02/01/18 07:30 Plt Count 223 K/MM3 (134-434) D 02/01/18 07:30 MPV 8.4 fl (7.5-11.1) 02/01/18 07:30 Sodium 139 mmol/L (136-145) 02/01/18 07:30 Potassium 3.3 mmol/L (3.5-5.1) L 02/01/18 07:30 Chloride 107 mmol/L (98-107) 02/01/18 07:30 Carbon Dioxide 27 mmol/L (21-32) 02/01/18 07:30 Anion Gap 5 (8-16) L 02/01/18 07:30 BUN 8 mg/dL (7-18) 02/01/18 07:30 Creatinine 0.6 mg/dL (0.55-1.02) 02/01/18 07:30 Creat Clearance w eGFR > 60 (>60) 02/01/18 07:30 Random Glucose 65 mg/dL (74-106) L 02/01/18 07:30 Calcium 8.5 mg/dL (8.5-10.1) 02/01/18 07:30 Total Bilirubin 1.0 mg/dL (0.2-1.0) D 02/01/18 07:30 AST 12 U/L (15-37) L 02/01/18 07:30 ALT 10 U/L (12-78) L 02/01/18 07:30 Alkaline Phosphatase 64 U/L (45-117) 02/01/18 07:30 Total Protein 7.2 g/dl (6.4-8.2) 02/01/18 07: Albumin 3.7 g/dl (3.4-5.0) 02/01/18 07:30 Urine Color [place] 01/31/18 22:30 Urine Appearance Turbid 01/31/18 22:30 Urine pH 5.0 (5.0-8.0) D 01/31/18 22:30 Ur Specific [place] 1.031 (1.001-1.035) 01/31/18 22:30 Urine Protein 1+ (NEGATIVE) H 01/31/18 22:30 Urine Glucose (UA) Negative (NEGATIVE) 01/31/18 22:30 Urine Ketones Negative (NEGATIVE) 01/31/18 22:30 Urine Blood Negative (NEGATIVE) 01/31/18 22:30 Urine Nitrite Negative (NEGATIVE) 01/31/18 22:30 Urine Bilirubin Negative (<2.0 mg/dL) 01/31/18 22: Urine Urobilinogen 2.0 mg/dL (0.2-1.0) H 01/31/18 22:30 Ur Leukocyte Esterase Negative (NEGATIVE) 01/31/18 22:30 Urine WBC (Auto) 3 /hpf (3-5) 01/31/18 22:30 Urine RBC (Auto) 2 /hpf (0-3) 01/31/18 22:30 Urine Bacteria Many /hpf (NONE SEEN) 01/31/18 22:30 Urine Mucus Many 01/31/18 22:30 RPR Titer Nonreactive (NONREACTIVE) 02/01/18 07:30 Assessment: 02/01/18 11:47 WITHDRAWAL SYMPTOM Plan: CONTINUE DETOX,K IS 3.3 HYPOKALEMIA,K DUR 20 MEQ PO DAILY,ENCOURAGE ORL FLUID
[2018-02-01] MEDS: CYCLOBENZAPRINE HCL 10 MG TABLET (FP) PO PRN ×2 (13:08→22:20)
[2018-02-01] MEDS: POTASSIUM CHLORIDE TABS 20 MEQ TABLET.ER (FP) PO SCH (13:09)
[2018-02-01] MEDS: ALBUTEROL SO4 2.5/IPRATROPIUM 0.5 INH SOL 3 ML VIAL.NEB. NEB PRN (13:09)
[2018-02-01] MEDS: THIAMINE HCL 100 MG TABLET (FP) PO SCH (22:20)
[2018-02-01] MEDS: cloNIDine HCL 0.1 MG TABLET PO SCH (22:20)
[2018-02-01] MEDS: QUEtiapine FUMARATE 100 MG TABLET (FP) PO SCH (22:20)
[2018-02-02] MEDS: ALBUTEROL SO4 18 GM HFA INHALER IH PRN ×4 (03:43→22:20)
[2018-02-02] MEDS: ACETAMINOPHEN 325 MG TABLET (FP) PO PRN (03:47)
[2018-02-02] MEDS: diazePAM 5 MG TABLET PO PRN ×4 (03:47→22:23)
[2018-02-02] MEDS: guaiFENesin/D-METHORPHAN HB 10 ML UNIT-DOSE CUPS PO PRN (03:47)
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
[2018-02-02] MEDS ORDERED: METHADONE HCL 5 MG TABLET (FOR DETOX USE ONLY) PO ONE (10:00)
[2018-02-02] MEDS: PRENATAL VITAMINS W/ FOLIC ACID TABLET (FP) PO SCH (10:17)
[2018-02-02] MEDS: CYCLOBENZAPRINE HCL 10 MG TABLET (FP) PO PRN ×2 (10:17→22:23)
[2018-02-02] MEDS: cloNIDine HCL 0.1 MG TABLET PO SCH ×2 (10:17→22:19)
[2018-02-02] MEDS: NICOTINE 14 MG/24 HOURS TOPICAL PATCH TD SCH (10:17)
[2018-02-02] MEDS: POTASSIUM CHLORIDE TABS 20 MEQ TABLET.ER (FP) PO SCH (10:17)
[2018-02-02] MEDS: BACITRACIN 0.9 GM PACKET TP SCH ×2 (10:17→22:19)
[2018-02-02] MEDS: AMMONIUM LACTATE 12% LOTION 225 GM BOTTLE TP SCH ×2 (11:35→22:24)
[2018-02-02] MEDS: ALBUTEROL SO4 2.5/IPRATROPIUM 0.5 INH SOL 3 ML VIAL.NEB. NEB PRN (14:45)
[2018-02-02] MEDS: NICOTINE POLACRILEX 2 MG GUM BC PRN ×2 (16:52→20:07)
[2018-02-02] MEDS: hydrOXYzine PAMOATE 25 MG CAPSULE (FP) PO PRN (20:23)
[2018-02-02] MEDS: THIAMINE HCL 100 MG TABLET (FP) PO SCH (22:19)
[2018-02-02] MEDS: QUEtiapine FUMARATE 100 MG TABLET (FP) PO SCH (22:19)
[2018-02-03] MEDS: ACETAMINOPHEN 325 MG TABLET (FP) PO PRN ×2 (03:25→18:17)
[2018-02-03] MEDS: diazePAM 5 MG TABLET PO PRN ×4 (03:26→19:40)
[2018-02-03] MEDS ORDERED: METHADONE HCL 5 MG TABLET (FOR DETOX USE ONLY) PO ONE (10:00)
[2018-02-03] MEDS: CYCLOBENZAPRINE HCL 10 MG TABLET (FP) PO PRN (10:38)
[2018-02-03] MEDS: BACITRACIN 0.9 GM PACKET TP SCH ×2 (10:38→22:32)
[2018-02-03] MEDS: AMMONIUM LACTATE 12% LOTION 225 GM BOTTLE TP SCH ×2 (10:38→22:32)
[2018-02-03] MEDS: PRENATAL VITAMINS W/ FOLIC ACID TABLET (FP) PO SCH (10:38)
[2018-02-03] MEDS: cloNIDine HCL 0.1 MG TABLET PO SCH ×2 (10:38→22:32)
[2018-02-03] MEDS: POTASSIUM CHLORIDE TABS 20 MEQ TABLET.ER (FP) PO SCH (10:38)
[2018-02-03] MEDS: NICOTINE 14 MG/24 HOURS TOPICAL PATCH TD SCH (10:39)
[2018-02-03] MEDS: NICOTINE POLACRILEX 2 MG GUM BC PRN ×4 (10:43→23:16)
--- NOTE | 2018-02-03 11:09 | PN ---
[facility] Progress Note (SOAP) Subjective: ALERT,IRRITABLE,ANXIOUS,INTERRUPTED SLEEP,PAIN IN THE BODY Objective: Vital Signs Temperature 97.9 F 02/03/18 10:00 Pulse Rate 78 02/03/18 10:00 Respiratory Rate 16 02/03/18 10:00 Blood Pressure 112/62 02/03/18 10:00 O2 Sat by Pulse Oximetry (%) Assessment: 02/03/18 11:09 WITHDRAWAL SYMPTOM Plan: CONTINUE DETOX
[2018-02-03] MEDS: hydrOXYzine PAMOATE 25 MG CAPSULE (FP) PO PRN ×2 (14:52→23:14)
[2018-02-03] MEDS: ALBUTEROL SO4 18 GM HFA INHALER IH PRN ×2 (17:09→19:45)
[2018-02-03] MEDS ORDERED: ONDANSETRON *ODT* 4 MG TABLET SL PRN (22:10)
--- NOTE | 2018-02-03 22:13 | PN ---
B[facility] Progress Note Note: ZOFRAN FOR C/O N/V REFUSING TIGAN EKG:QT/QTc 406/444 ms
[2018-02-03] MEDS: QUEtiapine FUMARATE 100 MG TABLET (FP) PO SCH (22:32)
[2018-02-03] MEDS: THIAMINE HCL 100 MG TABLET (FP) PO SCH (22:51)
[2018-02-03] MEDS: guaiFENesin/D-METHORPHAN HB 10 ML UNIT-DOSE CUPS PO PRN (23:14)
[2018-02-03] MEDS: MELATONIN 5 MG TABLETS PO PRN (23:14)
[2018-02-04] MEDS: hydrOXYzine PAMOATE 25 MG CAPSULE (FP) PO PRN ×5 (04:38→22:23)
[2018-02-04] MEDS: ALBUTEROL SO4 18 GM HFA INHALER IH PRN ×4 (04:38→22:24)
[2018-02-04] MEDS: P-EPHED 60MG/TRIPROLIDI 2.5MG TABLET PO PRN ×2 (04:38→18:09)
[2018-02-04] MEDS: ACETAMINOPHEN 325 MG TABLET (FP) PO PRN ×2 (04:38→23:05)
[2018-02-04] MEDS ORDERED: METHADONE HCL 10 MG TABLET (FOR DETOX USE ONLY) PO ONE (10:00)
[2018-02-04] MEDS: cloNIDine HCL 0.1 MG TABLET PO SCH ×2 (10:26→22:23)
[2018-02-04] MEDS: PRENATAL VITAMINS W/ FOLIC ACID TABLET (FP) PO SCH (10:26)
[2018-02-04] MEDS: NICOTINE 14 MG/24 HOURS TOPICAL PATCH TD SCH (10:26)
[2018-02-04] MEDS: BACITRACIN 0.9 GM PACKET TP SCH ×2 (10:26→22:23)
[2018-02-04] MEDS: CYCLOBENZAPRINE HCL 10 MG TABLET (FP) PO PRN ×2 (10:26→22:23)
[2018-02-04] MEDS: POTASSIUM CHLORIDE TABS 20 MEQ TABLET.ER (FP) PO SCH (10:26)
--- NOTE | 2018-02-04 10:37 | PN ---
[facility] Progress Note (SOAP) Subjective: ALERT,INTERRUPTED SLEEP Objective: 02/04/18 10:34 Vital Signs Temperature 97.5 F L 02/04/18 10:00 Pulse Rate 82 02/04/18 10:00 Respiratory Rate 18 02/04/18 10:00 Blood Pressure 107/71 02/04/18 10:00 O2 Sat by Pulse Oximetry (%) Assessment: 02/04/18 10:36 WITHDRAWAL SYMPTOM Plan: CONTINUE DETOX,REPEAT K IS 3.9,WILL D/C K DUR AFTER TODAY DOSE,DISCHARGE IN AM
[2018-02-04] MEDS: AMMONIUM LACTATE 12% LOTION 225 GM BOTTLE TP SCH ×2 (12:32→22:24)
[2018-02-04] MEDS: NICOTINE POLACRILEX 2 MG GUM BC PRN ×3 (14:33→23:06)
[2018-02-04] MEDS: QUEtiapine FUMARATE 100 MG TABLET (FP) PO SCH (22:23)
[2018-02-04] MEDS: THIAMINE HCL 100 MG TABLET (FP) PO SCH (23:42)
[2018-02-05] MEDS: NICOTINE POLACRILEX 2 MG GUM BC PRN (05:47)
[2018-02-05] MEDS: ALBUTEROL SO4 18 GM HFA INHALER IH PRN (05:49)
[2018-02-05] MEDS ORDERED: METHADONE HCL 5 MG TABLET (FOR DETOX USE ONLY) PO ONE (06:00)
[2018-02-05 07:21] VITALS: BP 145/75; PULSE 91; TEMP 97.9
[2018-02-05] MEDS: P-EPHED 60MG/TRIPROLIDI 2.5MG TABLET PO PRN (07:48)
[2018-02-05] MEDS: ACETAMINOPHEN 325 MG TABLET (FP) PO PRN (07:48)
--- NOTE | 2018-02-05 08:51 | DS ---
[facility] Detox Discharge Summary Admission Date: 01/31/18 Discharge Date: 02/05/18 - History Present History: Opioid Dependence - Physical Exam Results Vital Signs: Vital Signs Temperature 97.9 F 02/05/18 07:20 Pulse Rate 91 H 02/05/18 07:20 Respiratory Rate 18 02/05/18 07:20 Blood Pressure 145/75 02/05/18 07:20 O2 Sat by Pulse Oximetry (%) - Treatment Hospital Course: Detox Protocol Followed, Detoxed Safely, Responded well, Discharged Condition Good, Rehab Referral Accepted - Medication Discharge Medications: Ambulatory Orders traZODone HCL [Desyrel -] 100 mg PO HS #30 tablet 12/21/17 Albuterol Sulfate Inhaler - [Ventolin HFA Inhaler -] 2 puff IH Q4H PRN #1 inhaler 12/24/17 Valacyclovir HCl [Valtrex -] 500 mg PO BID 01/31/18 Quetiapine Fumarate [Seroquel] 100 mg PO HS #30 tablet 02/01/18 - Diagnosis (1) Hypokalemia Current Visit: Yes Status: Acute (2) Asthma Current Visit: Yes Status: Chronic Qualifiers: Asthma severity: mild Asthma persistence: intermittent (3) Dehydration Current Visit: Yes Status: Chronic (4) Depressed Current Visit: Yes Status: Chronic Qualifiers: Depression Type: unspecified Qualified Code(s): F32.9 - Major depressive disorder, single episode, unspecified (5) Nicotine dependence Current Visit: Yes Status: Chronic Qualifiers: Nicotine product type: cigarettes (6) Opioid dependence with withdrawal Current Visit: Yes Status: Chronic (7) Drug-induced mood disorder Current Visit: No Status: Acute (8) Hidradenitis suppurativa Current Visit: No Status: Acute (9) History of suicide attempt Current Visit: No Status: Acute (10) Insomnia Current Visit: No Status: Acute (11) Opioid dependence Current Visit: Yes Status: Chronic Qualifiers: Substance use status: uncomplicated Qualified Code(s): F11.20 - Opioid dependence, uncomplicated (12) Substance-induced sleep disorder Current Visit: No Status: Acute (13) History of gastric bypass Current Visit: No Status: Chronic (14) Depressed mood Current Visit: No Status: Suspected (15) Substance induced mood disorder Current Visit: No Status: Suspected - AMA Did Patient Leave Against Medical Advice: No
[2018-02-05] MEDS: BACITRACIN 0.9 GM PACKET TP SCH (09:39)
[2018-02-05] MEDS: POTASSIUM CHLORIDE TABS 20 MEQ TABLET.ER (FP) PO SCH (09:39)
[2018-02-05] MEDS: AMMONIUM LACTATE 12% LOTION 225 GM BOTTLE TP SCH (09:40)
[2018-02-05] MEDS: PRENATAL VITAMINS W/ FOLIC ACID TABLET (FP) PO SCH (09:40)
[2018-02-05] MEDS: NICOTINE 14 MG/24 HOURS TOPICAL PATCH TD SCH (09:40)
[2018-02-05] MEDS: CYCLOBENZAPRINE HCL 10 MG TABLET (FP) PO PRN (09:42)
[2018-02-05] MEDS: cloNIDine HCL 0.1 MG TABLET PO SCH (09:43)
== END 2018-02-05 09:54 | disposition home or self-care (01) | DRG 773 ==
LOC: YASAS 16:58 → Y6N 20:03
PROVIDERS: ADMIT Internal Medicine; ATTEND Internal Medicine
PROC: HZ2ZZZZ Detoxification Services for Substance Abuse Treatment (ICD-10-PCS; principal; 2018-01-31)
DX: F11.23 Opioid dependence with withdrawal (principal); F17.210 Nicotine dependence, cigarettes, uncomplicated; F32.9 Major depressive disorder, single episode, unspecified; F19.24 Other psychoactive substance dependence with psychoactive substance-induced mood disorder; F19.282 Other psychoactive substance dependence with psychoactive substance-induced sleep disorder; E87.6 Hypokalemia; E86.0 Dehydration; J45.909 Unspecified asthma, uncomplicated; L73.2 Hidradenitis suppurativa; G47.00 Insomnia, unspecified; Z87.42 Personal history of other diseases of the female genital tract; Z91.048 Other nonmedicinal substance allergy status; Z98.84 Bariatric surgery status; Z91.5 Personal history of self-harm
CPT/HCPCS: 36415; 80053; 81003; 81015; 84132; 85027; 86593; 93005; 93010; 94640; J0735; J7620; Q0162